=== PATIENT | male | born 1975 | race Caucasian/White ===

== ENCOUNTER 2020-09-05 14:31 | Outpatient (REF) | payer OTHER, SELFPAY | END 2020-09-05 14:32 | disposition home or self-care (01) | LOC: HO.LAB 14:31 | PROVIDERS: Visit Provider Internal Medicine | DX: Z20.828 Contact with and (suspected) exposure to other viral communicable diseases (principal) | CPT/HCPCS: C9803; U0003 ==

== ENCOUNTER → 2023-09-21 11:59 | Outpatient (BNVA) | payer OTHER, SELFPAY | PROVIDERS: Visit Provider Physician Assistant Medical | DX: S01.21XA Laceration without foreign body of nose, initial encounter (principal) | CPT/HCPCS: 12001; 99203 ==

== ENCOUNTER → 2023-09-23 14:21 | Outpatient (BNVA) | payer OTHER, SELFPAY | PROVIDERS: Visit Provider Physician Assistant Medical | DX: S01.21XA Laceration without foreign body of nose, initial encounter (principal); Y08.09XA Assault by strike by other specified type of sport equipment, initial encounter | CPT/HCPCS: 99214 ==

== ENCOUNTER 2023-10-19 09:54 | Emergency (ER) | payer OTHER, SELFPAY ==
--- NOTE | 2023-10-19 09:59 | ECG_ITS ---
Test Reason : chest pain Blood Pressure : / mmHG Vent. Rate : 068 BPM Atrial Rate : 068 BPM P-R Int : 124 ms QRS Dur : 088 ms QT Int : 404 ms P-R-T Axes : 055 059 018 degrees QTc Int : 429 ms Normal sinus rhythm with sinus arrhythmia Normal ECG No previous ECGs available Referred By: Generic ED Physician Electronically Signed By:LOU MARCIAL MD
[2023-10-19 10:01] VITALS: BP 150/90; PULSE 94; O2SAT 97
[2023-10-19 10:09] VITALS: BP 133/82; PULSE 77; RESP 20; TEMP 36.7; O2SAT 96; BMI 24.4
[2023-10-19 10:35] LABS: MANUAL DIFF FLAG NO
[2023-10-19 10:37] LABS: Basophils Percent Auto 0.4 % (0-2); Eosinophils Percent Auto 0.1 % (0-4); Hematocrit 42.8 % (42.0-52.0); Hemoglobin 14.5 g/dl (14.0-18.0); Imm Gran Abs Auto 0.02 X10*3/uL (0.00-0.03); Imm Gran Pct Auto 0.3 % (0.0-0.4); Lymphocytes Absolute Auto 0.6 X10*3/uL (1.2-4.9); Lymphocytes Percent Auto 8.2 % (20-40); Mean Corpuscular HGB Conc 33.9 g/dl (31.0-36.0); Mean Corpuscular Hemoglobin 31.5 pg (27.0-33.0); Mean Platelet Volume 9.3 fL (9.4-12.4); Monocytes Absolute Auto 0.4 X10*3/uL (0.1-1.2); Monocytes Percent Auto 5.6 % (2-11); Neutrophils Absolute Auto 5.9 x10*3/uL (2.0-8.3); Neutrophils Percent Auto 85.4 % (45-73); Platelet Count 196 X10*3/uL (160-400); Red Cell Distribution Width 12.7 % (11.0-16.0); White Blood Count 6.9 X10*3/uL (4.8-10.8)
[2023-10-19 11:13] LABS: Anion Gap 16 (12-20); Blood Urea Nitrogen 10 mg/dL (9-16); Carbon Dioxide 22 mmol/L (22-29); Chloride 108 mmol/L (96-108); Creatinine Clr Calc Pharmacy 123.7; Estimated Glomerular Filt Rate > 60; Glucose Random 125 mg/dL (60-115); Potassium 3.9 mmol/L (3.3-5.1); Sodium 142 mmol/L (135-145)
[2023-10-19 11:23] LABS: Troponin-I High Sensitivity < 2.7 ng/L (<3.5-35.0)
[2023-10-19 16:36] VITALS: BP 134/95; PULSE 63; RESP 16; TEMP 36.9; O2SAT 94
[2023-10-19 16:39] VITALS: BP 134/95; PULSE 76; RESP 17; TEMP 36.9
--- NOTE | 2023-10-19 16:41 | ED.GENADULT ---
HPI - General Adult General Chief complaint: General Medical Stated complaint: FEELS JITTERY AND FOGGY FROM WORK PER EMS Time Seen by Provider: 10/19/23 20:56 Source: patient and old records reviewed Mode of arrival: EMS Limitations: no limitations History of Present Illness HPI narrative: 48 yo male with no sig PMH but soon to be worked up for suspected SYEDA - does drink 2 to 3 drinks a day yesterday 4 or 5. 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 He states his BP went to 150s. He denies ETOH withdrawal and that he has withdrawal symptoms. He states that he just feels off. MD complaint: feels jittery Onset (ago): hour(s) (12) Radiation: non-radiation Severity: moderate Quality: other Relieving factors: none Exacerbating factors: none Associated symptoms: other (sweats, palpitations, BP elevated) Treatments prior to arrival: none Related Data Allergies Allergy/AdvReac Type Severity Reaction Status Date / Time Unable to Assess Allergy Unverified 10/19/23 16:42 Review of Systems Review of Systems: Constitutional : No Fever, No Chills, No Fatigue, pos sweats, pos jittery and pos shakes ENT/Mouth : No sore throat, No Rhinorrhea Eyes: No Eye Pain, No Swelling, No Redness Cardiovascular : No Chest Pain, No SOB, No Dyspnea on Exertion Respiratory : No Cough, No Sputum Gastrointestinal : No Nausea, No Vomiting, No Diarrhea, No abdominal Pain Genitourinary : No Dysuria, No Urinary Frequency, No Hematuria, Musculoskeletal : No joint pain, No Myalgias, No Joint Swelling Skin : No Skin Lesions, No rash Neuro : No Weakness, No Numbness, No Dizziness, positive Headache Psych : No Anxiety/Panic, No Depression Heme/Lymph: No Bruising, No Bleeding,No Lymphadenopathy Endocrine : No Polyuria, No Polydipsia All other systems reviewed and are negative PMFSH Past Medical History Attestation statement: The following information was validated with the patient. Medical History No pertinent past medical history Social History Social History Alcohol intake: current Alcohol intake frequency: 3 or more drinks per day Smoked in Last 30 Days: Yes Use of substances other than those prescribed or required for medical reasons: Yes Substance Use Type: Marijuana Substance Use Frequency: Occasionally Advance Directives: No Advance Directives Information Provided: No Physical Exam ED Vital Signs: Vital Signs - 24 hr 10/19/23 10:09 10/19/23 16:36 10/19/23 16:39 Temperature 98.1 F 98.4 F 98.4 F Pulse Rate 77 63 76 Respiratory Rate 20 16 17 Blood Pressure 133/82 134/95 H 134/95 H Pulse Oximetry 96 94 Oxygen Delivery Method Room Air Room Air Room Air Oxygen Flow Rate 10/19/23 20:42 Temperature 98.4 F Pulse Rate 90 Respiratory Rate 16 Blood Pressure 120/80 Pulse Oximetry Oxygen Delivery Method Room Air Oxygen Flow Rate 96 BMI result Body Mass Index 24.4 Appearance: Alert. Oriented X3. No acute distress. Eyes: Pupils equal, round and reactive to light. ENT: Pharynx normal. mild tongue fasciculations Neck: Normal inspection. Neck supple. CVS: Normal heart rate and rhythm. Pulses normal. Respiratory: No respiratory distress. Breath sounds normal. Abdomen: Soft and nontender. Skin: Skin warm and dry. Normal skin color. Normal skin turgor. Extremities: No lower extremity edema. No calf ttp Neuro: Oriented X 3. No motor deficit. No sensory deficit. slight tremor of both hands Medications Administered Discontinued Medications Generic Name Dose Route Start Last Admin Trade Name Freq PRN Reason Stop Dose Admin Chlordiazepoxide HCl 25 mg 10/19/23 21:05 10/19/23 21:16 Chlordiazepoxide Hcl 25 Mg Capsule PO 10/19/23 21:06 25 mg ONCE ONE Administration Lactated Ringer's 1,000 mls @ 999 mls/hr 10/19/23 21:15 10/19/23 22:43 Lr IV 10/19/23 22:15 Infused .Q1H1M PAUL Infusion Medical Decision Making Medical Decision Making MDM Narrative: 48 yo male with no sig PMH but here feel shaky jittery and off - he denies ingestions, has no focal neuro findings, no CP/SOB to suggest VTE. He is not toxic appearing and VS normal 12 hours after incident though he is slightly tremulous with mild tongue fasciculations - at this time will obtain basic labs, EKG, IVF and start on PO librium. Possible dehydration vs mild ETOH withdrawal vs viral syndrome Differential Diagnosis Differential Diagnoses: The differential diagnosis associated with the presentation includes Possible dehydration vs mild ETOH withdrawal vs viral syndrome Admission/Observation Consideration of admission/observation: Escalation of care including admission/observation considered feels much better stable for DC Lab Data [facility] Lab Attestation statement: I reviewed the patient's lab results. 10/19/23 10:31 10/19/23 10:31 Labs: Lab Results 10/19/23 10/19/23 10/19/23 Range/Units 10:31 18:27 21:52 WBC 6.9 (4.8-10.8) X10*3/uL RBC 4.60 (4.60-5.80) X10*6/uL Hgb 14.5 (14.0-18.0) g/dl Hct 42.8 (42.0-52.0) % MCV 93.0 (80.0-98.0) fL MCH 31.5 (27.0-33.0) pg MCHC 33.9 (31.0-36.0) g/dl RDW 12.7 (11.0-16.0) % Plt Count 196 (160-400) X10*3/uL MPV 9.3 L (9.4-12.4) fL Immature Gran % (Auto) 0.3 (0.0-0.4) % Neut % (Auto) 85.4 H (45-73) % Lymph % (Auto) 8.2 L (20-40) % [place] % (Auto) 5.6 (2-11) % Eos % (Auto) 0.1 (0-4) % Baso % (Auto) 0.4 (0-2) % Lymph # (Auto) 0.6 L (1.2-4.9) X10*3/uL [place] # (Auto) 0.4 (0.1-1.2) X10*3/uL Eos # (Auto) 0.0 (0.0-0.4) X10*3/uL Baso # (Auto) 0.0 (0.0-0.2) X10*3/uL Abs Immat Gran (auto) 0.02 (0.00-0.03) X10*3/uL Absolute Neuts (auto) 5.9 (2.0-8.3) x10*3/uL Absolute Nucleated RBC 0.000 (0.0-0.012) X10*3/uL Nucleated RBC % (auto) 0.0 (0.0-0.2) /100WBC Sodium 142 (135-145) mmol/L Potassium 3.9 (3.3-5.1) mmol/L Chloride 108 (96-108) mmol/L Carbon Dioxide 22 (22-29) mmol/L Anion Gap 16 (12-20) BUN 10 (9-16) mg/dL Creatinine 0.77 (0.5-1.4) mg/dL Estim Creat Clear Calc 123.7 Estimated GFR > 60 Random Glucose 125 H (60-115) mg/dL Calcium 9.0 (8.4-10.2) mg/dL Magnesium 2.1 (1.6-2.6) mg/dL Total Bilirubin 0.4 (0.0-1.0) mg/dL Direct Bilirubin 0.2 (0.0-0.5) mg/dL AST 30 (5-37) U/L ALT 25 (0-40) U/L Alkaline Phosphatase 47 (39-117) U/L Troponin I High Sens < 2.7 < 2.7 (<3.5-35.0) ng/L Total Protein 6.7 (6.5-8.0) g/dL Albumin 4.2 (3.5-5.0) g/dL TSH 2.79 (0.32-4.0) uIU/mL COVID-19 (HOWIE) Negative (Negative) COVID-19 Clin Com See Note Independent Interpretation I performed an independent interpretation of an: EKG Interpretation: Rate: 68 Rhythm: NSR [place]: normal Normal P waves. Normal SIMON. Normal QRS complex. ST T wave : normal no BISI, inverted t wave III qTC: normal prior studies: no acute ischemia The study has been interpreted contemporaneously by me. . Independent Historian Clinical information obtained from an independent historian. History obtained from or confirmed by: Spouse Discharge Plan Discharge Clinical Impression: Weakness Patient Disposition: Home, Self-Care Instructions: Weakness (ED) Additional Instructions: please take it easy the next couple of days. stay hydrated. cut down on your alcohol intake safey. return for numbness, weakness, seizures, chest pain, severe headaches or any other concerns. Stand Alone Forms: Work/School Release
--- OUTSIDE RECORDS SUMMARY | 2023-10-19 18:33 | XMS_ITS | Continuity of Care Document ---
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 Name Role Phone Sean Bernabe MD Primary Care Physician Encounter [facility] [place] Date(s): 02/03/22 - 03/05/[address] [id number] Attending Physician: Christopher Banks Admitting Physician: Christopher Banks Referring Physician: Admtr, ArHuber Allergies, Adverse Reactions, Alerts No Known Allergies Immunizations Given and Recorded Vaccine Date Status Refusal Reason SARS-CoV-2 (COVID-19) mRNA BNT-162b2 vac 02/06/21 Given SARS-CoV-2 (COVID-19) mRNA BNT-162b2 vac 01/16/21 Given Medications glycopyrrolate 1 mg oral tablet 2 mg, 2, tablet, By Mouth, 2 times a day, Refills 0, Maintenance, 05/18/20 7:39:00 EDT Start Date: 05/18/20 Status: Ordered
--- OUTSIDE RECORDS SUMMARY | 2023-10-19 18:33 | XMS_ITS | Continuity of Care Document ---
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 Name Role Phone Sean Bernabe MD Primary Care Physician Encounter [facility] [place] Date(s): 06/11/22 - 07/11/[address] [id number] [place] Attending Physician: Christopher Banks Admitting Physician: AdmChristopher cain Referring Physician: Admtr, ArHuber Allergies, Adverse Reactions, Alerts No Known Allergies Immunizations Given and Recorded Vaccine Date Status Refusal Reason SARS-CoV-2 (COVID-19) mRNA BNT-162b2 vac 02/06/21 Given SARS-CoV-2 (COVID-19) mRNA BNT-162b2 vac 01/16/21 Given Medications glycopyrrolate 1 mg oral tablet 2 mg, 2, tablet, By Mouth, 2 times a day, Refills 0, Maintenance, 05/18/20 7:39:00 EDT Start Date: 05/18/20 Status: Ordered Care Team Personnel Name: Sean Bernabe MD Address: [address] [place] [address], [address] [facility] [place], [place] [address]
[2023-10-19 18:55] LABS: Troponin-I High Sensitivity < 2.7 ng/L (<3.5-35.0)
[2023-10-19 19:08] LABS: TSH reflex Free T4 2.79 uIU/mL (0.32-4.0)
[2023-10-19 20:42] VITALS: BP 120/80; PULSE 90; RESP 16; TEMP 36.9
[2023-10-19] MEDS: chlordiazePOXIDE HCl 25 MG CAPSULE PO (21:16)
[2023-10-19] MEDS: Lactated Ringers 1,000 ML 999 ML IV (21:21)
--- NOTE | 2023-10-19 21:26 | PC.NURSE ---
Pt presents to ED for reports of feeling shaky, clammy, and weak. Pt is an everyday alcohol user. At the time of introduction, pt states symptoms are much better, and mostly stopped at this time. Pt is A&Ox4, GCS 15, with warm dry skin. 20g IV place din the left AC and pt was medicated per DEC.
[2023-10-19 21:29] LABS: Alanine Aminotransferase 25 U/L (0-40); Albumin Level 4.2 g/dL (3.5-5.0); Alkaline Phosphatase 47 U/L (39-117); Aspartate Amino Transferase 30 U/L (5-37); Bilirubin Direct 0.2 mg/dL (0.0-0.5); Bilirubin Total 0.4 mg/dL (0.0-1.0); Magnesium 2.1 mg/dL (1.6-2.6); Total Protein 6.7 g/dL (6.5-8.0)
[2023-10-19 22:14] LABS: COVID-19 Test Negative (Negative); IDNOW Serial# 58CA691E
== END 2023-10-19 23:09 | disposition home or self-care (01) ==
PROVIDERS: Physician Assistant Medical; Emergency Provider Emergency Medicine
DX: R07.89 Other chest pain (principal); I49.8 Other specified cardiac arrhythmias; R53.1 Weakness; R03.0 Elevated blood-pressure reading, without diagnosis of hypertension; Z11.52 Encounter for screening for COVID-19; Z20.822 Contact with and (suspected) exposure to COVID-19; Z79.899 Other long term (current) drug therapy
CPT/HCPCS: 36415; 80048; 80076; 83735; 84443; 84484; 85025; 87635; 93005; 96360; 99284; 99285; J7120

== ENCOUNTER → 2023-10-19 09:59 | Outpatient (BNV) | payer OTHER, SELFPAY | PROVIDERS: Visit Provider Internal Medicine Cardiovascular Disease | DX: I49.9 Cardiac arrhythmia, unspecified (principal) | CPT/HCPCS: 93010 ==